=== PATIENT | female | born 1965 | race Caucasian/White ===

== ENCOUNTER → 2016-03-28 | Outpatient (CLI) | payer OTHER ==
[~2016-03-28] MED LIST: CIPRO250 MG PO; VICODIN 5/500 505 MG PO
[2016-03-28 09:33] LABS: BASO # 0.1 10*3/uL (0.0-0.1); BASO % 0.9 % (0.0-1.0); EOS # 0.2 10*3/uL (0.0-0.4); EOS % 4.3 % (1.0-4.0); HEMATOCRIT 41.3 % (37.0-47.0); LYMPH # 0.5 10*3/uL (1.3-4.4); LYMPH % 9.2 % (27.0-41.0); MEAN CELL VOLUME 96.3 fl (81.0-99.0); MEAN CORPUSCULAR HGB 32.6 pg (27.0-31.0); MEAN CORPUSCULAR HGB CONC 33.9 g/dl (33.0-37.0); MEAN PLATELET VOLUME 10.4 fl (9.6-12.3); MONO # 0.6 10*3/uL (0.1-1.0); MONO % 10.9 % (3.0-9.0); NEUT % 74.1 % (47.0-73.0); PLATELET COUNT AUTOMATED 315 10*3/uL (130-400); RED BLOOD COUNT 4.29 10*6/uL (4.10-5.10); RED CELL DISTRI WIDTH 12.7 % (0-14.5); WHITE BLOOD COUNT 5.4 10*3/uL (4.8-10.8)
[2016-03-28 10:04] LABS: ALBUMIN 3.7 gm/dl (3.1-4.5); ALKALINE PHOSPHATASE 77 U/L (45-117); BILIRUBIN, TOTAL 0.5 mg/dl (0.2-1.0); BUN 13 mg/dl (7-24); CARBON DIOXIDE 27 mmol/L (21-32); CHLORIDE 111 mmol/L (98-107); EST GLOM FILT AFRICAN AMERICAN > 60 ml/min; FREE T4 1.22 ng/dl (0.76-1.46); GLUCOSE 90 mg/dL (65-99); POTASSIUM 3.9 mmol/L (3.5-5.1); SGOT/AST 9 IU/L (3-35); SGPT/ALT 34 U/L (12-78); SODIUM 144 mmol/L (136-145); TOTAL PROTEIN 6.9 gm/dL (6.4-8.2)
[2016-03-28 11:53] LABS: FOLIC ACID 18.51 ng/mL (>5.38); VITAMIN D, 25-HYDROXY 66.1 ng/mL (30-100)
== END | disposition home or self-care (01) ==
LOC: LAB 09:09
PROVIDERS: Psychiatry & Neurology Neurology
DX: G35 Multiple sclerosis (principal); E53.8 Deficiency of other specified B group vitamins; E55.9 Vitamin D deficiency, unspecified; Z79.899 Other long term (current) drug therapy

== ENCOUNTER → 2016-03-29 | Outpatient (CLI) | payer OTHER | END | disposition home or self-care (01) | LOC: MRI 00:44 | DX: G35 Multiple sclerosis (principal) ==

== ENCOUNTER 2016-10-04 11:08 | Emergency (ER) | payer OTHER ==
[~2016-10-04] VITALS: Ht 172.7 cm; Wt 67.1 kg
[2016-10-04] MEDS ORDERED: GILENYA0.5 M1 PO (11:15)
[2016-10-04] MEDS ORDERED: AMPYRA10 MG PO (11:16)
[2016-10-04 11:45] LABS: BASO % 0.4 % (0.0-1.0); EOS # 0.1 10*3/uL (0.0-0.4); EOS % 1.1 % (1.0-4.0); HEMATOCRIT 38.6 % (37.0-47.0); HEMOGLOBIN 13.2 g/dl (12.0-16.0); LYMPH # 0.5 10*3/uL (1.3-4.4); LYMPH % 4.4 % (27.0-41.0); MEAN CELL VOLUME 94.4 fl (81.0-99.0); MEAN CORPUSCULAR HGB 32.3 pg (27.0-31.0); MEAN CORPUSCULAR HGB CONC 34.2 g/dl (33.0-37.0); MONO # 1.3 10*3/uL (0.1-1.0); MONO % 11.8 % (3.0-9.0); NEUT % 81.9 % (47.0-73.0); PLATELET COUNT AUTOMATED 283 10*3/uL (130-400); RED BLOOD COUNT 4.09 10*6/uL (4.10-5.10); RED CELL DISTRI WIDTH 12.8 % (0-14.5); WHITE BLOOD COUNT 10.9 10*3/uL (4.8-10.8)
[2016-10-04 12:00] LABS: ALBUMIN 3.7 gm/dl (3.1-4.5); ALKALINE PHOSPHATASE 66 U/L (45-117); BILIRUBIN, TOTAL 0.4 mg/dl (0.2-1.0); BUN 16 mg/dl (7-24); CARBON DIOXIDE 25 mmol/L (21-32); CHLORIDE 107 mmol/L (98-107); EST GLOM FILT AFRICAN AMERICAN 53 ml/min; GLUCOSE 91 mg/dL (65-99); POTASSIUM 3.8 mmol/L (3.5-5.1); SGOT/AST 15 IU/L (3-35); SGPT/ALT 28 U/L (12-78); SODIUM 139 mmol/L (136-145); TOTAL PROTEIN 6.9 gm/dL (6.4-8.2)
[2016-10-04 12:03] LABS: C-REACTIVE PROTEIN < 0.29 MG/DL (0-0.3)
[2016-10-04 12:03] LABS: BILIRUBIN NEGATIVE (NEGATIVE); BLOOD 3+ (NEGATIVE); CLARITY SL CLOUDY (CLEAR); COLOR YELLOW (YELLOW); GLUCOSE NEGATIVE (NEGATIVE); KETONE NEGATIVE (NEGATIVE); LEUKO ESTERASE 1+ (NEGATIVE); NITRITE NEGATIVE (NEGATIVE); PROTEIN TRACE (NEGATIVE); UROBILINOGEN 0.2 E.U./dl (0.2-1.0)
[2016-10-04 12:13] LABS: BACTERIA 2+; EPITHELIAL CELLS 0-2; RBC 31-40 rbc/hpf (0-2); URINE REFLEX COMMENT YES (NO)
[2016-10-04 13:42] VITALS: BP 118/73
[2016-10-04] MEDS ORDERED: Motrin,Rufen800 MG PO (14:16)
[2016-10-04] MEDS ORDERED: ZOFRAN ODT4 MG SL (14:16)
== END 2016-10-04 14:31 | disposition home or self-care (01) ==
LOC: ED 11:08
PROVIDERS: Physician Assistant
DX: N20.1 Calculus of ureter (principal); R31.9 Hematuria, unspecified; Z79.899 Other long term (current) drug therapy

== ENCOUNTER 2016-12-14 17:07 | Emergency (ER) | payer OTHER ==
[~2016-12-14] VITALS: Ht 170.1 cm; Wt 63.5 kg
[~2016-12-14 17:07] MED LIST changes: +AMPYRA10 MG PO; +GILENYA0.5 M1 PO; +Motrin,Rufen800 MG PO; +ZOFRAN ODT4 MG SL
[2016-12-14 17:21] VITALS: BP 131/59
[2016-12-14 17:54] LABS: BASO # 0.1 10*3/uL (0.0-0.1); BASO % 0.5 % (0.0-1.0); EOS # 0.2 10*3/uL (0.0-0.4); EOS % 2.2 % (1.0-4.0); HEMATOCRIT 39.5 % (37.0-47.0); HEMOGLOBIN 13.4 g/dl (12.0-16.0); LYMPH # 0.4 10*3/uL (1.3-4.4); LYMPH % 4.2 % (27.0-41.0); MEAN CELL VOLUME 96.3 fl (81.0-99.0); MEAN CORPUSCULAR HGB 32.7 pg (27.0-31.0); MEAN CORPUSCULAR HGB CONC 33.9 g/dl (33.0-37.0); MEAN PLATELET VOLUME 10.4 fl (9.6-12.3); MONO % 10.3 % (3.0-9.0); NEUT # 7.7 10*3/uL (2.3-7.9); NEUT % 82.5 % (47.0-73.0); PLATELET COUNT AUTOMATED 280 10*3/uL (130-400); RED CELL DISTRI WIDTH 12.7 % (0-14.5); WHITE BLOOD COUNT 9.4 10*3/uL (4.8-10.8)
[2016-12-14 18:08] LABS: ALBUMIN 3.7 gm/dl (3.1-4.5); ALKALINE PHOSPHATASE 69 U/L (45-117); BUN 15 mg/dl (7-24); CHLORIDE 106 mmol/L (98-107); POTASSIUM 4.2 mmol/L (3.5-5.1); SGOT/AST 6 IU/L (3-35); SGPT/ALT 25 U/L (12-78); SODIUM 140 mmol/L (136-145); TOTAL PROTEIN 6.7 gm/dL (6.4-8.2)
[2016-12-14 19:29] LABS: BILIRUBIN NEGATIVE (NEGATIVE); BLOOD TRACE-INTACT (NEGATIVE); CLARITY CLEAR (CLEAR); COLOR YELLOW (YELLOW); GLUCOSE NEGATIVE (NEGATIVE); KETONE NEGATIVE (NEGATIVE); LEUKO ESTERASE 1+ (NEGATIVE); NITRITE NEGATIVE (NEGATIVE); SPECIFIC GRAVITY <= 1.005 (1.005-1.030); UROBILINOGEN 0.2 E.U./dl (0.2-1.0)
[2016-12-14 19:36] LABS: BACTERIA 2+; WBC 16-20 wbc/hpf (0-5)
[2016-12-14] MEDS ORDERED: ZOFRAN ODT4 MG SL (20:14)
[2016-12-14] MEDS ORDERED: AMINOPHYLLIN200 MG PO (20:14)
[2016-12-14] MEDS ORDERED: NORCO 5-325 TA1 EACH PO (20:14)
== END 2016-12-14 21:19 | disposition home or self-care (01) ==
LOC: ED 17:07
PROVIDERS: Physician Assistant
DX: N23 Unspecified renal colic (principal); N30.01 Acute cystitis with hematuria

== ENCOUNTER → 2017-01-19 | Outpatient (CLI) | payer OTHER ==
[~2017-01-19] MED LIST changes: +AMINOPHYLLIN200 MG PO; +NORCO 5-325 TA1 EACH PO
[2017-01-19 08:52] LABS: BASO % 0.8 % (0.0-1.0); EOS # 0.2 10*3/uL (0.0-0.4); EOS % 2.9 % (1.0-4.0); HEMATOCRIT 41.5 % (37.0-47.0); HEMOGLOBIN 14.1 g/dl (12.0-16.0); LYMPH # 0.6 10*3/uL (1.3-4.4); LYMPH % 11.2 % (27.0-41.0); MEAN CELL VOLUME 96.3 fl (81.0-99.0); MEAN CORPUSCULAR HGB 32.7 pg (27.0-31.0); MEAN PLATELET VOLUME 10.4 fl (9.6-12.3); MONO # 0.7 10*3/uL (0.1-1.0); MONO % 13.7 % (3.0-9.0); NEUT # 3.7 10*3/uL (2.3-7.9); PLATELET COUNT AUTOMATED 320 10*3/uL (130-400); RED BLOOD COUNT 4.31 10*6/uL (4.10-5.10); RED CELL DISTRI WIDTH 12.6 % (0-14.5); WHITE BLOOD COUNT 5.2 10*3/uL (4.8-10.8)
[2017-01-19 09:04] LABS: ALBUMIN 3.9 gm/dl (3.1-4.5); ALKALINE PHOSPHATASE 78 U/L (45-117); BUN 20 mg/dl (7-24); CHLORIDE 107 mmol/L (98-107); CREATININE 0.87 mg/dL (0.55-1.02); POTASSIUM 3.9 mmol/L (3.5-5.1); SGOT/AST 16 IU/L (3-35); SGPT/ALT 39 U/L (12-78); SODIUM 144 mmol/L (136-145); TOTAL PROTEIN 7.2 gm/dL (6.4-8.2)
[2017-01-19 10:16] LABS: VITAMIN D, 25-HYDROXY 77.2 ng/mL (30-100)
== END ==
LOC: LAB 08:08
PROVIDERS: Psychiatry & Neurology Neurology
DX: Z13.21 Encounter for screening for nutritional disorder (principal); Z51.81 Encounter for therapeutic drug level monitoring; G35 Multiple sclerosis; E53.8 Deficiency of other specified B group vitamins; E55.9 Vitamin D deficiency, unspecified

== ENCOUNTER → 2017-04-02 | Outpatient (CLI) | payer OTHER ==
[2017-04-02 10:56] LABS: BUN 9 mg/dl (7-24); CREATININE 1.05 mg/dL (0.55-1.02)
== END | disposition home or self-care (01) ==
LOC: LAB 10:24 → MRI 11:00
PROVIDERS: Psychiatry & Neurology Neurology
DX: G35 Multiple sclerosis (principal); G43.009 Migraine without aura, not intractable, without status migrainosus; R29.898 Other symptoms and signs involving the musculoskeletal system

== ENCOUNTER → 2018-04-18 | Outpatient (CLI) | payer OTHER ==
[2018-04-18 13:10] LABS: BASO % 0.4 % (0.0-1.0); EOS # 0.2 10*3/uL (0.0-0.4); EOS % 3.2 % (1.0-4.0); HEMATOCRIT 42.7 % (37.0-47.0); HEMOGLOBIN 14.1 g/dl (12.0-16.0); LYMPH # 0.3 10*3/uL (1.3-4.4); LYMPH % 4.3 % (27.0-41.0); MEAN PLATELET VOLUME 10.6 fl (9.6-12.3); MONO % 14.6 % (3.0-9.0); NEUT # 5.3 10*3/uL (2.3-7.9); NEUT % 76.1 % (47.0-73.0); PLATELET COUNT AUTOMATED 262 10*3/uL (130-400); RED CELL DISTRI WIDTH 13.2 % (0-14.5)
[2018-04-18 13:40] LABS: ALBUMIN 3.7 gm/dl (3.1-4.5); ALKALINE PHOSPHATASE 81 U/L (45-117); BUN 11 mg/dl (7-24); CHLORIDE 107 mmol/L (98-107); CREATININE 0.94 mg/dL (0.55-1.02); POTASSIUM 3.9 mmol/L (3.5-5.1); SGOT/AST 27 IU/L (3-35); SGPT/ALT 57 U/L (12-78); SODIUM 141 mmol/L (136-145); TOTAL PROTEIN 7.1 gm/dL (6.4-8.2)
== END | disposition home or self-care (01) ==
LOC: LAB 12:15 → MRI 13:00
PROVIDERS: Psychiatry & Neurology Neurology
DX: Z51.81 Encounter for therapeutic drug level monitoring (principal); R42 Dizziness and giddiness; E55.9 Vitamin D deficiency, unspecified; Z79.899 Other long term (current) drug therapy

== ENCOUNTER → 2021-05-30 | Outpatient (CLI) | payer OTHER | END | disposition home or self-care (01) | LOC: MRI 13:50 | PROVIDERS: ATTEND Physician Assistant Medical | DX: G35 Multiple sclerosis (principal) ==

== ENCOUNTER 2022-01-13 17:31 | Emergency (ER) | payer OTHER ==
[~2022-01-13] VITALS: Wt 63.5 kg
[2022-01-13 17:40] VITALS: BP 145/81
== END 2022-01-13 21:09 | disposition home or self-care (01) ==
LOC: ED 17:31
DX: M25.552 Pain in left hip (principal); Z79.899 Other long term (current) drug therapy

== ENCOUNTER → 2023-04-24 | Outpatient (CLI) | payer OTHER ==
[2023-04-26 17:07] LABS: TB1 Ag VALUE 0.01 IU/mL (.)
== END | disposition home or self-care (01) ==
LOC: LAB 00:59 → MRI 11:00
PROVIDERS: ATTEND Psychiatry & Neurology Neurology
DX: G35 Multiple sclerosis (principal); Z11.59 Encounter for screening for other viral diseases; M62.838 Other muscle spasm; D72.810 Lymphocytopenia; R53.82 Chronic fatigue, unspecified; N31.9 Neuromuscular dysfunction of bladder, unspecified; R20.2 Paresthesia of skin

== ENCOUNTER → 2023-05-11 | Outpatient (CLI) | payer OTHER | END | disposition home or self-care (01) | LOC: MRI 01:27 | PROVIDERS: ATTEND Psychiatry & Neurology Neurology | DX: M47.812 Spondylosis without myelopathy or radiculopathy, cervical region (principal); G35 Multiple sclerosis; M62.838 Other muscle spasm; R53.82 Chronic fatigue, unspecified; M79.2 Neuralgia and neuritis, unspecified; D72.810 Lymphocytopenia; Z11.59 Encounter for screening for other viral diseases; N13.30 Unspecified hydronephrosis; D18.09 Hemangioma of other sites; M47.814 Spondylosis without myelopathy or radiculopathy, thoracic region; M51.44 Schmorl's nodes, thoracic region; M25.78 Osteophyte, vertebrae; G95.89 Other specified diseases of spinal cord ==

== ENCOUNTER → 2023-06-01 | Outpatient (CLI) | payer OTHER | END | disposition home or self-care (01) | LOC: US 01:57 | PROVIDERS: ATTEND Family Medicine | DX: N13.30 Unspecified hydronephrosis (principal); Z87.442 Personal history of urinary calculi ==